=== PATIENT | female | born 1960 | race Caucasian/White ===

== ENCOUNTER → 2019-11-08 | Outpatient (CLI) | payer OTHER ==
[~2019-11-08] MED LIST: LEVOTHYROXIN0.025 MG PO; MULTAQ400 MG; PRAVACHOL20 MG PO; SAVAYSA60 MG PO; TOPROL XL25 MG PO
--- NOTE | 2019-12-03 19:39 | SLEEP ---
[address] [address] SLEEP STUDY REPORT Name: MARISOL MERCER Room: [facility]#: [id number] Admission: 11/08/19 Attend Phys: Angel Sawyer MD Discharge: Date of : 62 Report #: [id number] THIS REPORT FOR: //name// CC: Lupillo Sawyer MD This study has been reviewed in its entirety by a board certified sleep specialist DATE OF SERVICE: 11/08/2019 HOME SLEEP STUDY ATTENDING PHYSICIAN: Angel Sawyer MD The patient is 59 years old who weighs 189 pounds with a BMI of 28.7. The patient's [place] score was 8. The patient underwent home sleep study performed at [facility]. Total recording time was 539.4 minutes. During the night of the study, the patient had 81 obstructive apneas, no central or mixed apneas and 176 hypopneas. The patient's AHI was 29.2 per hour with no supine sleep recorded. Nocturnal oximetry study revealed an average oxygen saturation of 92% with the lowest of 77%. 102 minutes were spent in oxygen saturation less than 90% and 6 minutes with saturation of less than 85%. Mean heart rate 84 beats per minute with a maximum of 129 beats per minute. IMPRESSION: 1. Moderate to severe obstructive sleep apnea at an AHI of 29.2 per hour. 2. Nocturnal hypoxia secondary to obstructive sleep apnea. RECOMMENDATIONS: 1. The patient would benefit from in-lab CPAP titration study. Alternate treatment option would include home auto-titration study. 2. Once the patient is optimally treated with CPAP then follow up in 4-6 weeks to assess compliance and to document clinical improvement. 3. Weight loss to the ideal body weight is recommended. 4. Avoid [employer] [place] [address] SLEEP STUDY REPORT Name: MARISOL MERCER Room: [facility]#: [id number] Admission: 11/08/19 Attend Phys: Angel Sawyer MD Discharge: Date of : 62 Report #: [id number] 5. Cautioned regarding driving until the patient's sleep apnea is effectively treated with CPAP. <ELECTRONICALLY SIGNED> By: Anirudh Escamilla MD 12/03/19 1939 [id number] Escamilla MD /nt
== END ==
LOC: M.SLEEPLAB 11:00
PROVIDERS: ATTEND Internal Medicine Cardiovascular Disease
DX: G47.34 Idiopathic sleep related nonobstructive alveolar hypoventilation (principal); G47.33 Obstructive sleep apnea (adult) (pediatric); I48.0 Paroxysmal atrial fibrillation

== ENCOUNTER → 2021-05-15 | Outpatient (CLI) | payer OTHER | LOC: M.CT 05-11 09:00 | PROVIDERS: ATTEND Internal Medicine Cardiovascular Disease | DX: Z13.6 Encounter for screening for cardiovascular disorders (principal); I25.10 Atherosclerotic heart disease of native coronary artery without angina pectoris ==